=== PATIENT | female | born 1955 | race Caucasian/White ===

== ENCOUNTER 2020-06-26 08:06 | Day surgery (SDC) | payer MEDICARE, OTHER ==
[~2020-06-26 08:06] MED LIST: Acetaminophen 325 MG Tab PO SCH; Acetaminophen/oxyCODONE 325-5 MG Tab PO PRN; Bisacodyl 5 MG Tab PO PRN; Cyclobenzaprine 10 MG Tab PO PRN; EPINEPHrine 1 MG/ML SDV ONE; Lactated Ringers 1,000 ML IV SCH; Lactated Ringers 1,000 ML ONE; Lidocaine 1%/Sod Bicarbonate in NS 8.4% 1 ML Syringe IDERM PRN; Midazolam 1 MG/ML 2 ML SDV ONE; Ondansetron 4 MG/2 ML SDV ONE; Pregabalin 25 MG Cap PO SCH; Propofol 200 MG/20 ML SDV ONE; Ropivacaine 0.5% 5 MG/ML 30 ML SDV ONE; Sodium Chloride 0.9% 10 ML Syringe FLUSH PRN; ceFAZolin 1 GM Vial ONE; fentaNYL 100 MCG/2 ML SDV ONE; oxyCODONE ER 10 MG TAB.ER PO SCH
--- NOTE | 2020-06-26 08:15 | PCM.PREANE ---
Preanesthetic Assessment - Anesthesia/Transfusion/Family Hx Anesthesia History: Prior Anesthesia Without Reaction Family History of Anesthesia Reaction: No Transfusion History: No Prior Transfusion(s) - Review of Systems General: Other (Renal calculus, obesity) Pulmonary: No Symptoms Cardiovascular: Other (HTN, increased cholesterol, SP ablation for SVT in 2009, current EKG is SR with PAC) Gastrointestinal: Other (heartburn, pt states feels its food related) Neurological: Other (H&P states lumbar disc displacement. pt states that she has low back pain, nothing that radiates down legs) Other: Reports: Thyroid Problems (on replacement) - Physical Assessment NPO Status Date: 06/25/20 NPO Status Time: 23:30 Weight: 106 kg ASA Class: 3 Mental Status: Alert & Oriented x3 Airway Class: Mallampati = 2 Dentition: Reports: Normal Dentition Thyro-Mental Finger Breadths: 2 Mouth Opening Finger Breadths: 3 ROM/Head Extension: Full Lungs: Clear to Auscultation, Normal Respiratory Effort Cardiovascular: Regular Rate, Regular Rhythm - Lab Values: Laboratory Last Values SARS-CoV-2 (PCR) Not detected (NOT DETECT) 06/22/20 10:00 MRSA (PCR) Negative 06/13/20 11:32 - Allergies Allergies/Adverse Reactions: Allergies Allergy/AdvReac Type Severity Reaction Status Date / Time Iodinated Contrast Media Allergy Cannot Verified 06/23/20 14:45 Remember - Blood Blood Available: No Product(s) Available: None - Anesthesia Plan Pre-Op Medication Ordered: None - Acknowledgements Anesthesia Type Planned: Spinal Pt an Appropriate Candidate for the Planned Anesthesia: Yes Alternatives and Risks of Anesthesia Discussed w Pt/Guardian: Yes Pt/Guardian Understands and Agrees with Anesthesia Plan: Yes PreAnesthesia Questionnaire HEENT History: Reports: Impaired Vision, Other (See Below) Other HEENT History: wears glasses Cardiovascular History: Reports: Hypertension, Other (See Below) Other Cardiovascular History: SVT with ablation approx 2009 Respiratory History: Reports: None Gastrointestinal History: Reports: None, Colon Polyp Genitourinary History: Reports: Renal Calculus CUT OFF TENDER GLASS History: Reports: None Musculoskeletal History: Reports: Osteoarthritis Neurological History: Reports: None Psychiatric History: Reports: None Endocrine/Metabolic History: Reports: Hypothyroidism, Osteopenia Hematologic History: Reports: None Immunologic History: Reports: None Oncologic (Cancer) History: Reports: None Dermatologic History: Reports: None - Past Surgical History Head Surgeries/Procedures: Reports: None Cardiovascular Surgical History: Reports: Cardiac Ablation Respiratory Surgical History: Reports: None GI Surgical History: Reports: Colonoscopy Female Surgical History: Reports: Breast Biopsy Male Surgical History: Reports: None Endocrine Surgical History: Reports: Thyroidectomy Neurological Surgical History: Reports: Other (See Below) Other Neurological Surgeries/Procedures: lumbar disc displacement Musculoskeletal Surgical History: Reports: Other (See Below) Other Musculoskeletal Surgeries/Procedures:: left wrist surgery Oncologic Surgical History: Reports: None Dermatological Surgical History: Reports: None - SUBSTANCE USE Smoking Status *Q: Never Smoker Recreational Drug Use History: No - HOME MEDS Home Medications: Home Meds Calcium Carb/Vitamin D3/Vit K1 [Calcium + D Soft Chewable Tab] 1 tab PO DAILY 06/23/20 [History] Cholecalciferol (Vitamin D3) [Vitamin D3] 2,000 unit PO DAILY 06/23/20 [History] Levothyroxine 112 mcg PO Q48H 06/23/20 [History] Levothyroxine 125 mcg PO Q48H 06/23/20 [History] Magnesium Oxide 400 mg PO DAILY 06/23/20 [History] allopurinoL [Zyloprim] 300 mg PO DAILY 06/23/20 [History] hydroCHLOROthiazide [Hydrochlorothiazide] 25 mg PO DAILY 06/23/20 [History] lisinopriL [Lisinopril] 10 mg PO DAILY 06/23/20 [History] Acetaminophen [Tylenol Extra Strength] 1,000 mg PO BEDTIME #0 06/26/20 [Rx] Acetaminophen/oxyCODONE [Percocet 325-5 MG] 1 - 2 tab PO Q4H PRN #60 tablet 06/26/20 [Rx] Aspirin [Ecotrin EC] 325 mg PO BID #84 tab.ec 06/26/20 [Rx] Cyclobenzaprine [Flexeril] 10 mg PO BID PRN #20 tablet 06/26/20 [Rx] Docusate Sodium [Colace] 100 mg PO BID cap 06/26/20 [Rx] Famotidine [Pepcid] 20 mg PO Q12H tablet 06/26/20 [Rx] Magnesium Hydroxide [Milk of Magnesia] 30 ml PO BID PRN cup 06/26/20 [Rx] Sennosides [Senna] 8.6 mg PO BID PRN tablet 06/26/20 [Rx] bisacodyL [Dulcolax] 5 mg PO DAILY PRN tablet 06/26/20 [Rx] - CURRENT (IN HOUSE) MEDS Current Meds: Current Medications Acetaminophen (Tylenol) 975 mg PO ONETIME [facility] Stop: 06/26/20 16:00 Aspirin (Ecotrin) 325 mg PO BID [place]IT[place] Bisacodyl (Dulcolax) 5 mg PO DAILY PRN PRN Reason: Constipation Morphine Sulfate 8 mg/Epinephrine HCl 0.3 mg/Cefuroxime Sodium 750 mg/Ketorolac Tromethamine 30 mg/Sodium Chloride 7.9 ml 0 mg .XX ASDIRECTED PRN PRN Reason: Pain Stop: 06/26/20 14:00 Cyclobenzaprine HCl (Flexeril) 10 mg PO TID PRN PRN Reason: Spasms Docusate Sodium (Colace) 100 mg PO BID [place]IT[place] Famotidine (Pepcid) 20 mg PO Q12H [facility] Lactated Ringer's (Ringers, Lactated) 1,000 mls @ 125 mls/hr IV ASDIRECTED TEMITOPE Stop: 06/26/20 23:00 Cefazolin Sodium/Dextrose 2 gm (/ Premix) 50 mls @ 100 mls/hr IV Q8H TEMITOPE Stop: 06/26/20 22:29 Ketorolac Tromethamine (Toradol) 15 mg IVPUSH Q6H PRN PRN Reason: Pain Lidocaine/Sodium Bicarbonate (Buffered Lidocaine 1% In Ns 8.4%) 0.25 ml IDERM ONETIME PRN PRN Reason: Prior to IV Start Stop: 06/26/20 18:00 Magnesium Hydroxide (Milk Of Magnesia) 30 ml PO BID PRN PRN Reason: Constipation Oxycodone HCl (Oxycontin) 10 mg PO ONETIME [facility] Stop: 06/26/20 16:00 Oxycodone/Acetaminophen (Percocet 325-5 Mg) 1 - 2 tab PO Q4H PRN PRN Reason: Pain Pregabalin (Lyrica) 50 mg PO ONETIME [facility] Stop: 06/26/20 16:00 Senna (Senna) 8.6 mg PO BID PRN PRN Reason: Constipation Sodium Chloride (Saline Flush) 10 ml FLUSH ASDIRECTED PRN PRN Reason: Keep Vein Open Stop: 06/26/20 18:00 Discontinued Medications Cefazolin Sodium (Ancef) Confirm Administered Dose 2 gm .ROUTE .STK-MED ONE Stop: 06/26/20 07:08 Epinephrine HCl (Adrenalin) Confirm Administered Dose 1 mg .ROUTE .STK-MED ONE Stop: 06/26/20 07:45 Fentanyl (Sublimaze) Confirm Administered Dose 100 mcg .ROUTE .STK-MED ONE Stop: 06/26/20 07:09 Lactated Ringer's (Ringers, Lactated) Confirm Administered Dose 1,000 mls @ as directed .ROUTE .STK-MED ONE Stop: 06/26/20 07:08 Midazolam HCl (Versed 1 Mg/Ml) Confirm Administered Dose 2 mg .ROUTE .STK-MED ONE Stop: 06/26/20 07:09 Ondansetron HCl (Zofran) Confirm Administered Dose 4 mg .ROUTE .STK-MED ONE Stop: 06/26/20 07:08 Propofol (Diprivan 20 Ml) Confirm Administered Dose 600 mg .ROUTE .STK-MED ONE Stop: 06/26/20 07:09 Ropivacaine (Naropin 0.5%) Confirm Administered Dose 30 ml .ROUTE .STK-MED ONE Stop: 06/26/20 07:45
[2020-06-26] MEDS ORDERED: Triamcinolone Acetonide 40 MG/ML 1 ML SDV ONE (08:16)
[2020-06-26] MEDS ORDERED: Magnesium Hydroxide 400 MG/5 ML Susp 30 ML Cup PO PRN (09:00)
[2020-06-26] MEDS ORDERED: Docusate Sodium 100 MG Cap PO SCH (09:00)
[2020-06-26] MEDS ORDERED: Sennosides 8.6 MG Tab PO PRN (09:00)
[2020-06-26] MEDS ORDERED: Ketorolac 15 MG/ML SDV IVPUSH PRN (09:00)
[2020-06-26] MEDS: Vancomycin 1 GM SDV ONE ×2 (09:48→10:23)
[2020-06-26] MEDS: Bupivacaine 0.25% 10 ML SDV ONE ×4 (09:48→10:40)
[2020-06-26] MEDS: Triamcinolone Acetonide 40 MG/ML 1 ML SDV ONE ×2 (09:51→10:40)
[2020-06-26] MEDS: Morphine 8 MG, EPINEPHrine 0.3 MG, Cefuroxime 750 MG, Ketorolac 30 MG, Sodium Chloride ... PRN ×10 (10:11→10:27)
[2020-06-26] MEDS ORDERED: diphenhydrAMINE 50 MG/ML SDV IVPUSH PRN (10:51)
[2020-06-26] MEDS ORDERED: fentaNYL 100 MCG/2 ML SDV IVPUSH PRN (10:51)
[2020-06-26] MEDS ORDERED: Ondansetron 4 MG/2 ML SDV IVPUSH PRN (10:51)
--- NOTE | 2020-06-26 10:51 | PCM.POSTAN ---
POST ANESTHESIA ASSESSMENT - MENTAL STATUS Mental Status: Alert, Oriented - VITAL SIGNS Vital Signs: Last Vital Signs Temp 36.7 C 06/26/20 08:05 Pulse 74 06/26/20 08:05 Resp 16 06/26/20 08:05 BP 173/92 H 06/26/20 08:28 Pulse Ox 96 06/26/20 08:05 - RESPIRATORY Respiratory Status: Respiratory Rate WNL, Airway Patent, O2 Saturation Stable, Supplemental Oxygen - CARDIOVASCULAR CV Status: Pulse Rate WNL, Blood Pressure Stable - GASTROINTESTINAL GI Status: No Symptoms - PAIN Pain Score: 0 - POST OP HYDRATION Hydration Status: Adequate & Stable
--- NOTE | 2020-06-26 11:20 | PCM.SN.2 ---
- Free Text/Narrative Note: Left selective femoral nerve block at the adductor canal for post-procedure pain control under US guidance requested by Dr. Machuca. Date: 06-26-20 Time Out: 1104 Start: 1105 End: 111 Chart reviewed. Consent signed. Questions answered. Appropriate monitors applied. Time out performed. Left mid-shaft femur identified with ultrasound, scanning medially of femur, the femoral artery in the adductor canal visualized, and the femoral nerve located laterally to the artery. The skin was prepped lateral to the ultrasound probe with chlorahexadine times two. The 21ga 4 insulated block needle was inserted under direct ultrasound guidance into the adductor canal. 25mL of 0.5% ropivacaine with 1:200,000 epinephrine was injected circumferentially around the nerve with intermittent negative aspiration noted. Patient tolerated the procedure well. Sterile technique noted along with sterile gloves, mask, and sterile probe cover. See picture on progress note and vital signs on nurses notes. Block completed in PACU. Beulah Elizabeth CRNA
--- NOTE | 2020-06-26 11:41 | CR ---
Left knee: AP and stable lateral views left knee were obtained. Comparison: No prior knee study is available. Knee prosthesis is seen. Components are aligned. Soft tissue air is noted from the surgical procedure. Underlying bony structures are intact. Dystrophic calcifications are seen within soft tissues. Impression: 1. Satisfactory postop radiographic appearance of recently placed left knee prosthesis. Diagnostic code #2 This report was dictated in MDT
--- NOTE | 2020-06-26 14:44 | PCM48HPAN ---
Post Anesthesia Note - EVALUATION WITHIN 48HRS OF ANESTHETIC Vital Signs in Normal Range: Yes Patient Participated in Evaluation: Yes Respiratory Function Stable: Yes Airway Patent: Yes Cardiovascular Function Stable: Yes Hydration Status Stable: Yes Pain Control Satisfactory: Yes (complains of some back pain.) Nausea and Vomiting Control Satisfactory: Yes (stomach feeling bad after pain pills. did eat crackers. ) Mental Status Recovered: Yes Vital Signs: Last Vital Signs Temp 97.2 F 06/26/20 11:34 Pulse 72 06/26/20 13:12 Resp 16 06/26/20 13:12 BP 119/61 06/26/20 13:12 Pulse Ox 95 06/26/20 13:12
[2020-06-26] MEDS ORDERED: ceFAZolin 2 GM in Premix Bag 1 BAG IV SCH (16:00)
--- NOTE | 2020-06-26 17:16 | PCM.OPNOTE ---
- General Post-Op/Procedure Note Date of Surgery/Procedure: 06/26/20 Operative Procedure(s): left total knee arthroplasty Pre Op Diagnosis: left knee osteoarthrosis Anesthesia Technique: Local, MAC, Spinal Primary Surgeon: Ben Machuca Anesthesia Provider: Ifrah Rivas Welder Assistant: Kalpana Dai Welder Assistant: Kary Flannery EBKelly in mLs: 5 Complications: None Condition: Good Free Text/Narrative:: Intake & Output 06/26/20 06/26/20 06/26/20 06:59 14:59 22:59 Intake Total 200 Balance 200 5 femur 4 tibia cemented 9PS 32x10
[2020-06-26] MEDS ORDERED: Famotidine 20 MG Tab PO SCH (21:00)
[2020-06-27] MEDS ORDERED: Aspirin 325 MG Tab.EC PO SCH (09:00)
--- NOTE | 2020-07-03 09:51 | OR ---
DATE OF OPERATION: 06/26/2020 SURGEON: Ben Machuca MD OPERATION PERFORMED: Left total knee arthroplasty. PREOPERATIVE DIAGNOSIS: Left knee osteoarthrosis. POSTOPERATIVE DIAGNOSIS: Left knee osteoarthrosis ANESTHESIA: Local MAC with spinal. ANESTHESIA PROVIDER: Ifrah Rivas. ASSISTANTS: Kalpana Dai PA-C and Kary Flannery LPN. ESTIMATED BLOOD LOSS: 5 mL. COMPLICATIONS: None. CONDITION: Stable. IMPLANTS: 1. Yoandy size 5 cemented PS femur. 2. [place] size 4 cemented Plummer tibial base plate. 3. [place] size 4, 9 mm PS X3 polyethylene insert. 4. Yoandy size 32 x 10 mm cemented asymmetric patella. DESCRIPTION OF PROCEDURE: The patient was identified in the preop holding area. Proper site was marked and identified by the surgeon. The patient was taken back to the operating theater. After adequate anesthesia, the patient's left lower extremity had a nonsterile tourniquet applied and it was sterilely prepped and draped in the usual sterile fashion. OR time-out was performed. The patient received 2 g IV Ancef. At this time, the left lower extremity was exsanguinated. Tourniquet was insufflated to 300 mmHg. Standard medial parapatellar incision was made. Medial parapatellar arthrotomy was created. Deep fibers of the MCL were raised and anterior fat pad was resected. At this time, attention was turned to the patella. Patella measured 23, it was resected to a 13 for 32 x 10 mm patella. Drill holes were then drilled and found to be in adequate position. The drill was then drilled in the distal femur and the intramedullary distal femoral cutting guide was then placed. 8 mm was resected off the distal femur and was found to be an adequate resection. Sizing guide was placed. It was found to be a size 5 cemented PS femur that was shown on the implant record at the beginning of this dictation. The drill holes were drilled for the epicondylar axis using Whitesides line and epicondyles as reference. At this time, the 4-in-1 cutting block was placed. An anterior posterior and anterior and posterior chamfer cuts were then completed. Box cut was completed at this time. Attention was turned to the tibia. The posterior medial lateral retractors were placed. The extramedullary tibial guide was placed. It was placed in the old footprint of the ACL. It was aligned with the center of the ankle and 0 degrees of slope, 9 mm was then resected off the unaffected side. There was found to be an acceptable reduction. At this time, posterior osteophytes were removed along with medial and lateral meniscus. A trial implant was placed with a correct sized tibia that was mentioned at the beginning of the dictation. A [place] size 4, 9 mm PS X3 polyethylene insert was then placed. The patient's knee was brought through range of motion. The patella was tracking centrally and was stable to varus and valgus stress. Alignment was found to be roughly at 0 degrees. The tibia was stamped and drilled in proper rotation. Cement was mixed and all cut surfaces were dried. The Plummer tibial base plate was impacted in place. Next, the Yoandy size 5 cemented PS femur impacted into place and the [place] size 4, 9 mm PS X3 polyethylene insert was placed. The patient's knee was brought into full extension. The patella was then cemented in place at this time. Excess cement was removed. One liter dilute Betadine solution was irrigated through the knee along with 3 L of pulse lavage irrigation with Ancef. Periarticular injection was then completed. The patient's knee was brought through a range of motion. Once the cement had time to set up and it was found to be stable to varus valgus stress, the patella was tracking centrally with full range of motion. At this time, a #2 barbed suture was used for closure of the medial parapatellar arthrotomy. Topical tranexamic acid was placed. 2-0 Vicryl was used subcutaneously, Prineo was used for the skin. The patient tolerated the procedure well and was sent to the PACU in stable condition. MMODAL /[id number] SMILEY
== END 2020-06-26 15:20 | disposition home or self-care (01) ==
LOC: JD.SDS 08:06
PROVIDERS: ATTEND Orthopaedic Surgery
DX: M17.12 Unilateral primary osteoarthritis, left knee (principal); I10 Essential (primary) hypertension; E78.00 Pure hypercholesterolemia, unspecified; E66.3 Overweight; E03.4 Atrophy of thyroid (acquired); Z79.899 Other long term (current) drug therapy; Z91.041 Radiographic dye allergy status; Z98.890 Other specified postprocedural states; Z79.890 Hormone replacement therapy; Z68.37 Body mass index [BMI] 37.0-37.9, adult; Z01.812 Encounter for preprocedural laboratory examination; Z20.828 Contact with and (suspected) exposure to other viral communicable diseases; G89.18 Other acute postprocedural pain
CPT/HCPCS: 27447; 73560; 87641; 97110; 97116; 97161; A9270; C1713; C1776; J0171; J0690; J0697; J1885; J2250; J2270; J2370; J2405; J2704; J2795; J3010; J3301; J3370; J3490; J7120; U0002; 01402; 64450

== ENCOUNTER 2020-08-15 11:51 | Day surgery (SDC) | payer MEDICARE, OTHER ==
[~2020-08-15 11:51] MED LIST changes: -Acetaminophen 325 MG Tab PO SCH; -Acetaminophen/oxyCODONE 325-5 MG Tab PO PRN; -Bisacodyl 5 MG Tab PO PRN; +Cefuroxime 10 MG/ML SYRINGE EYERT SCH; -Cyclobenzaprine 10 MG Tab PO PRN; -EPINEPHrine 1 MG/ML SDV ONE; -Lactated Ringers 1,000 ML IV SCH; -Lactated Ringers 1,000 ML ONE; +Lidocaine 1% PF 2 ML SDV INJECT SCH; -Lidocaine 1%/Sod Bicarbonate in NS 8.4% 1 ML Syringe IDERM PRN; -Midazolam 1 MG/ML 2 ML SDV ONE; -Ondansetron 4 MG/2 ML SDV ONE; +Pilocarpine 4% Ophth Soln 15 ML Bot EYERT SCH; -Pregabalin 25 MG Cap PO SCH; -Propofol 200 MG/20 ML SDV ONE; -Ropivacaine 0.5% 5 MG/ML 30 ML SDV ONE; -Sodium Chloride 0.9% 10 ML Syringe FLUSH PRN; -ceFAZolin 1 GM Vial ONE; -fentaNYL 100 MCG/2 ML SDV ONE; -oxyCODONE ER 10 MG TAB.ER PO SCH
[2020-08-15] MEDS: Polymyxin B/Trimethoprim 10 ML Bottle EYERT SCH ×3 (11:56→13:31)
[2020-08-15] MEDS: Brimonidine 0.2% Ophth Soln 5 ML Bottle EYERT SCH ×3 (11:59→13:31)
[2020-08-15] MEDS: Phenylephrine 2.5% Ophth Soln 2 ML Bot EYERT SCH ×5 (12:04→13:13)
[2020-08-15] MEDS: Tropicamide 1% Ophth Soln 15 ML Bottle EYERT SCH ×4 (12:08→12:50)
--- NOTE | 2020-08-15 12:09 | PCM.PREANE ---
Preanesthetic Assessment - Anesthesia/Transfusion/Family Hx Anesthesia History: Prior Anesthesia Without Reaction Family History of Anesthesia Reaction: No Transfusion History: No Prior Transfusion(s) - Review of Systems General: Other (obesity) Pulmonary: No Symptoms Cardiovascular: Other (HTN, SVT s/p ablation) Gastrointestinal: No Symptoms Neurological: No Symptoms, Other (s/p total knee) Other: Reports: Thyroid Problems - Physical Assessment NPO Status Date: 08/15/20 NPO Status Time: 23:00 Weight: 104.326 kg ASA Class: 2 Mental Status: Alert & Oriented x3 Airway Class: Mallampati = 2 Dentition: Reports: Normal Dentition Thyro-Mental Finger Breadths: 3 Mouth Opening Finger Breadths: 3 ROM/Head Extension: Full Lungs: Clear to Auscultation, Normal Respiratory Effort Cardiovascular: Regular Rate, Regular Rhythm - Allergies Allergies/Adverse Reactions: Allergies Allergy/AdvReac Type Severity Reaction Status Date / Time Iodinated Contrast Media Allergy Cannot Verified 08/14/20 15:55 Remember - Blood Blood Available: No Product(s) Available: None - Anesthesia Plan Pre-Op Medication Ordered: None - Acknowledgements Anesthesia Type Planned: MAC Pt an Appropriate Candidate for the Planned Anesthesia: Yes Alternatives and Risks of Anesthesia Discussed w Pt/Guardian: Yes Pt/Guardian Understands and Agrees with Anesthesia Plan: Yes PreAnesthesia Questionnaire HEENT History: Reports: Impaired Vision, Other (See Below) Other HEENT History: wears glasses Cardiovascular History: Reports: Hypertension, Other (See Below) Other Cardiovascular History: SVT with ablation approx 2009 Respiratory History: Reports: None Gastrointestinal History: Reports: None, Colon Polyp Genitourinary History: Reports: Renal Calculus 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 History: Reports: None Musculoskeletal History: Reports: Osteoarthritis Neurological History: Reports: None Psychiatric History: Reports: None Endocrine/Metabolic History: Reports: Hypothyroidism, Osteopenia Hematologic History: Reports: None Immunologic History: Reports: None Oncologic (Cancer) History: Reports: None Dermatologic History: Reports: None - Past Surgical History Head Surgeries/Procedures: Reports: None Cardiovascular Surgical History: Reports: Cardiac Ablation Respiratory Surgical History: Reports: None GI Surgical History: Reports: Colonoscopy Female Surgical History: Reports: Breast Biopsy Male Surgical History: Reports: None Endocrine Surgical History: Reports: Thyroidectomy Neurological Surgical History: Reports: Other (See Below) Other Neurological Surgeries/Procedures: lumbar disc displacement Musculoskeletal Surgical History: Reports: Other (See Below) Other Musculoskeletal Surgeries/Procedures:: left wrist surgery Oncologic Surgical History: Reports: None Dermatological Surgical History: Reports: None - HOME MEDS Home Medications: Home Meds Calcium Carb/Vitamin D3/Vit K1 [Calcium + D Soft Chewable Tab] 1 tab PO DAILY 06/23/20 [History] Cholecalciferol (Vitamin D3) [Vitamin D3] 2,000 unit PO DAILY 06/23/20 [History] Levothyroxine 112 mcg PO Q48H 06/23/20 [History] Levothyroxine 125 mcg PO Q48H 06/23/20 [History] Magnesium Oxide 400 mg PO DAILY 06/23/20 [History] allopurinoL [Zyloprim] 300 mg PO DAILY 06/23/20 [History] hydroCHLOROthiazide [Hydrochlorothiazide] 25 mg PO DAILY 06/23/20 [History] lisinopriL [Lisinopril] 10 mg PO DAILY 06/23/20 [History] Acetaminophen [Tylenol Extra Strength] 1,000 mg PO BEDTIME #0 06/26/20 [Rx] Acetaminophen/oxyCODONE [Percocet 325-5 MG] 1 - 2 tab PO Q4H PRN #60 tablet 06/26/20 [Rx] Aspirin [Ecotrin EC] 325 mg PO BID #84 tab.ec 06/26/20 [Rx] Cyclobenzaprine [Flexeril] 10 mg PO BID PRN #20 tablet 06/26/20 [Rx] Docusate Sodium [Colace] 100 mg PO BID cap 06/26/20 [Rx] Famotidine [Pepcid] 20 mg PO Q12H tablet 06/26/20 [Rx] Magnesium Hydroxide [Milk of Magnesia] 30 ml PO BID PRN cup 06/26/20 [Rx] Sennosides [Senna] 8.6 mg PO BID PRN tablet 06/26/20 [Rx] bisacodyL [Dulcolax] 5 mg PO DAILY PRN tablet 06/26/20 [Rx] - CURRENT (IN HOUSE) MEDS Current Meds: Current Medications Brimonidine Tartrate (Alphagan 0.2% Ophth Soln) 0 ml EYERT ASDIRECTED [facility]ITOPE Stop: 08/15/20 18:00 Last Admin: 08/15/20 11:59 Dose: 1 drop Documented by: Cefuroxime Sodium (Zinacef) 0 mg EYERT ASDIRECTED [place]IT[place] Stop: 08/15/20 18:00 Lidocaine HCl (Xylocaine-Mpf 1%) 0 ml INJECT ASDIRECTED [place]ITOPE Stop: 08/15/20 18:00 Phenylephrine HCl (Arnoldo-Synephrine 2.5% Ophth Soln) 0 ml EYERT ASDIRECTED [place]IT[place] Stop: 08/15/20 18:00 Pilocarpine HCl (Pilocar 4% Ophth Soln) 0 ml EYERT ASDIRECTED [place]IT[place] Stop: 08/15/20 18:00 Polymyxin/Trimethoprim Sulfate (Polytrim Ophth Soln) 0 ml EYERT ASDIRECTED [place]IT[place] Stop: 08/15/20 18:00 Last Admin: 08/15/20 11:56 Dose: 1 drop Documented by: Tetracaine HCl (Tetracaine 0.5% Steri-Unit Suri) 0 ml EYEBOTH ASDIRECTED [facility]IT[place] Stop: 08/15/20 18:00 Tropicamide (Mydriacyl 1% Oph Soln) 0 ml EYERT ASDIRECTED [facility]IT[place] Stop: 08/15/20 18:00
[2020-08-15] MEDS: Tetracaine HCl/PF 0.5% 4 ML Bottle EYEBOTH SCH ×4 (12:55→13:21)
--- NOTE | 2020-08-15 13:33 | PCM48HPAN ---
Post Anesthesia Note - EVALUATION WITHIN 48HRS OF ANESTHETIC Vital Signs in Normal Range: Yes Patient Participated in Evaluation: Yes Respiratory Function Stable: Yes Airway Patent: Yes Cardiovascular Function Stable: Yes Hydration Status Stable: Yes Pain Control Satisfactory: Yes Nausea and Vomiting Control Satisfactory: Yes Mental Status Recovered: Yes Vital Signs: Last Vital Signs Temp 97.8 F 08/15/20 11:45 Pulse 84 08/15/20 11:45 Resp 16 08/15/20 11:45 BP 148/84 H 08/15/20 11:45 Pulse Ox 97 08/15/20 11:45 Post procedure VSs: 133/74 78, 96%, 15RR
== END 2020-08-15 13:57 | disposition home or self-care (01) ==
LOC: JD.SDS 11:51
PROVIDERS: ATTEND Ophthalmology
DX: H25.813 Combined forms of age-related cataract, bilateral (principal); H16.103 Unspecified superficial keratitis, bilateral; H16.223 Keratoconjunctivitis sicca, not specified as Sjogren's, bilateral; H35.363 Drusen (degenerative) of macula, bilateral; H35.3131 Nonexudative age-related macular degeneration, bilateral, early dry stage; H50.012 Monocular esotropia, left eye; H53.002 Unspecified amblyopia, left eye; I10 Essential (primary) hypertension; E66.9 Obesity, unspecified; E03.9 Hypothyroidism, unspecified; Z98.890 Other specified postprocedural states; Z79.899 Other long term (current) drug therapy
CPT/HCPCS: 66984; C1780; J0697; J2001

== ENCOUNTER 2020-12-11 08:00 | Day surgery (SDC) | payer MEDICARE, OTHER ==
[~2020-12-11 08:00] MED LIST changes: +Acetaminophen 325 MG Tab PO SCH; -Cefuroxime 10 MG/ML SYRINGE EYERT SCH; -Lidocaine 1% PF 2 ML SDV INJECT SCH; +Lidocaine 1%/Sod Bicarbonate in NS 8.4% 1 ML Syringe IDERM PRN; -Pilocarpine 4% Ophth Soln 15 ML Bot EYERT SCH; +Pregabalin 25 MG Cap PO SCH; +Scopolamine 1.5 MG Transdermal Patch TRDERM PRN; +Sodium Chloride 0.9% 10 ML Syringe FLUSH PRN; +oxyCODONE ER 10 MG TAB.ER PO SCH
[2020-12-11] MEDS: Lactated Ringers 1,000 ML IV SCH ×2 (08:15→12:36)
[2020-12-11] MEDS ORDERED: Ropivacaine 0.5% 5 MG/ML 30 ML SDV ONE (08:45)
--- NOTE | 2020-12-11 09:04 | PCM.PREANE ---
Preanesthetic Assessment - Procedure Proposed Procedure: Right total knee - Anesthesia/Transfusion/Family Hx Anesthesia History: Prior Anesthesia Without Reaction Family History of Anesthesia Reaction: No Transfusion History: No Prior Transfusion(s) - Review of Systems General: No Symptoms Pulmonary: No Symptoms Cardiovascular: Dyspnea on Exertion Gastrointestinal: No Symptoms Neurological: No Symptoms Other: Reports: Thyroid Problems (hypothyroid) - Physical Assessment NPO Status Date: 12/10/20 NPO Status Time: 00:00 Vital Signs: Last Vital Signs Temp 36.2 C 12/11/20 08:05 Pulse 96 12/11/20 08:05 Resp 18 12/11/20 08:05 BP 167/79 H 12/11/20 08:19 Pulse Ox 96 12/11/20 08:05 Height: 1.68 m Weight: 109.8 kg ASA Class: 2 Mental Status: Alert & Oriented x3 Airway Class: Mallampati = 2 Dentition: Reports: [place](s) Thyro-Mental Finger Breadths: 2 Mouth Opening Finger Breadths: 2 ROM/Head Extension: Full Lungs: Clear to Auscultation, Normal Respiratory Effort Cardiovascular: Regular Rate, Regular Rhythm - Lab Values: Laboratory Last Values MRSA (PCR) Negative 11/24/20 10:54 - Imaging/EKG Impressions: EKG SR rate 69 - Allergies Allergies/Adverse Reactions: Allergies Allergy/AdvReac Type Severity Reaction Status Date / Time Iodinated Contrast Media Allergy Cannot Verified 12/11/20 08:36 Remember - Anesthesia Plan Pre-Op Medication Ordered: None - Acknowledgements Anesthesia Type Planned: Spinal, Regional Block (adductor canal block) Pt an Appropriate Candidate for the Planned Anesthesia: Yes Alternatives and Risks of Anesthesia Discussed w Pt/Guardian: Yes Pt/Guardian Understands and Agrees with Anesthesia Plan: Yes PreAnesthesia Questionnaire HEENT History: Reports: Impaired Vision, Other (See Below) Other HEENT History: wears glasses Cardiovascular History: Reports: High Cholesterol, Hypertension, Other (See Below) Other Cardiovascular History: SVT with ablation approx 2009 Respiratory History: Reports: None Gastrointestinal History: Reports: Colon Polyp, GERD Genitourinary History: Reports: Renal Calculus CQ DEVELOPER History: Reports: None Musculoskeletal History: Reports: Osteoarthritis Neurological History: Reports: None Psychiatric History: Reports: None Endocrine/Metabolic History: Reports: Hypothyroidism, Osteopenia Hematologic History: Reports: None Immunologic History: Reports: None Oncologic (Cancer) History: Reports: None Dermatologic History: Reports: None - Infectious Disease History Infectious Disease History: Reports: None - Past Surgical History Head Surgeries/Procedures: Reports: None Cardiovascular Surgical History: Reports: Cardiac Ablation Respiratory Surgical History: Reports: None GI Surgical History: Reports: Colonoscopy Female Surgical History: Reports: Breast Biopsy Male Surgical History: Reports: None Endocrine Surgical History: Reports: Thyroidectomy Neurological Surgical History: Reports: Other (See Below) Other Neurological Surgeries/Procedures: lumbar disc displacement Musculoskeletal Surgical History: Reports: Knee Replacement, Other (See Below) Other Musculoskeletal Surgeries/Procedures:: left wrist surgery, left total knee replacement Oncologic Surgical History: Reports: None Dermatological Surgical History: Reports: None - SUBSTANCE USE Tobacco Use Status *Q: Never Tobacco User Tobacco Use Within Last Twelve Months: No Second Hand Smoke Exposure: No Days Per Week of Alcohol Use: 1 Number of Drinks Per Day: 0 Total Drinks Per Week: 0 Recreational Drug Use History: No - HOME MEDS Home Medications: Home Meds Calcium Carb/Vitamin D3/Vit K1 [Calcium + D Soft Chewable Tab] 1 tab PO DAILY 06/23/20 [History] Cholecalciferol (Vitamin D3) [Vitamin D3] 5,000 unit PO DAILY 06/23/20 [History] Levothyroxine 112 mcg PO Q48H 06/23/20 [History] Levothyroxine 125 mcg PO Q48H 06/23/20 [History] Magnesium Oxide 400 mg PO DAILY 06/23/20 [History] allopurinoL [Zyloprim] 300 mg PO DAILY 06/23/20 [History] hydroCHLOROthiazide [Hydrochlorothiazide] 25 mg PO DAILY 06/23/20 [History] lisinopriL [Lisinopril] 10 mg PO DAILY 06/23/20 [History] Vitamin E 400 unit PO DAILY 12/08/20 [History] Aspirin [Aspirin EC] 325 mg PO BID #84 tab 12/09/20 [Rx] Cyclobenzaprine [Flexeril] 10 mg PO BID PRN #20 tab 12/09/20 [Rx] oxyCODONE 5 - 15 mg PO Q4H PRN #40 tab 12/09/20 [Rx] - CURRENT (IN HOUSE) MEDS Current Meds: Current Medications Acetaminophen (Acetaminophen 325 Mg Tab) 975 mg PO ONETIME TEMITOPE Stop: 12/11/20 16:00 Last Admin: 12/11/20 08:27 Dose: 975 mg Documented by: Morphine Sulfate 8 mg/Epinephrine HCl 0.3 mg/Cefuroxime Sodium 750 mg/Ketorolac Tromethamine 30 mg/Sodium Chloride 7.9 ml 0 mg .XX ASDIRECTED PRN PRN Reason: Pain Stop: 12/11/20 23:00 Lactated Ringer's (Ringers, Lactated) 1,000 mls @ 125 mls/hr IV ASDIRECTED TEMITOPE Stop: 12/11/20 23:00 Last Admin: 12/11/20 08:15 Dose: 125 mls/hr Documented by: Lidocaine/Sodium Bicarbonate (Lidocaine 1%/Sod Bicarbonate In Ns 8.4% 1 Ml Syringe) 0.25 ml IDERM ONETIME PRN PRN Reason: Prior to IV Start Stop: 12/11/20 18:00 Last Admin: 12/11/20 08:15 Dose: 0.25 ml Documented by: Miscellaneous Information (Remove Scopolamine Patch) 1.5 ea TRDERM ONETIME PRN PRN Reason: PONV Stop: 12/14/20 23:00 Oxycodone HCl (Oxycodone Er 10 Mg Tab.Er) 10 mg PO ONETIME TEMITOPE Stop: 12/11/20 16:00 Last Admin: 12/11/20 08:29 Dose: 10 mg Documented by: Pregabalin (Pregabalin 25 Mg Cap) 50 mg PO ONETIME TEMITOPE Stop: 12/11/20 16:00 Last Admin: 12/11/20 08:29 Dose: 50 mg Documented by: Scopolamine (Scopolamine 1.5 Mg Transdermal Patch) 1.5 mg TRDERM ONETIME PRN PRN Reason: PONV Stop: 12/14/20 23:00 Last Admin: 12/11/20 08:30 Dose: 1.5 mg Documented by: Sodium Chloride (Sodium Chloride 0.9% 10 Ml Syringe) 10 ml FLUSH ASDIRECTED PRN PRN Reason: Keep Vein Open Stop: 12/11/20 18:00 Discontinued Medications Ropivacaine (Ropivacaine 0.5% 5 Mg/Ml 30 Ml Sdv) Confirm Administered Dose 30 ml .ROUTE .STK-MED ONE Stop: 12/11/20 08:46 Tranexamic Acid (Tranexamic Acid 1,000 Mg/10 Ml Amp) Confirm Administered Dose 1,000 mg .ROUTE .STK-MED ONE Stop: 12/11/20 08:48 Vancomycin HCl (Vancomycin 1 Gm Sdv) Confirm Administered Dose 1 gm .ROUTE .STK- MED ONE Stop: 12/11/20 08:48
[2020-12-11] MEDS ORDERED: Midazolam 1 MG/ML 2 ML SDV ONE ×2 (09:43→09:46)
[2020-12-11] MEDS ORDERED: Propofol 200 MG/20 ML SDV ONE ×2 (09:43→11:26)
[2020-12-11] MEDS ORDERED: Lactated Ringers 1,000 ML ONE (09:43)
[2020-12-11] MEDS ORDERED: fentaNYL 100 MCG/2 ML SDV ONE ×2 (09:43→12:16)
[2020-12-11] MEDS ORDERED: Ketamine 500 mg/10 ML MDV ONE (10:05)
[2020-12-11] MEDS ORDERED: ceFAZolin 1 GM Vial ONE (10:08)
[2020-12-11] MEDS: Morphine 8 MG, EPINEPHrine 0.3 MG, Cefuroxime 750 MG, Ketorolac 30 MG, Sodium Chloride ... PRN ×10 (11:15→11:20)
[2020-12-11] MEDS: Vancomycin 1 GM SDV ONE ×2 (11:16→11:31)
--- NOTE | 2020-12-11 12:04 | PCM.POSTAN ---
POST ANESTHESIA ASSESSMENT - MENTAL STATUS Mental Status: Other (Drowsy) - VITAL SIGNS Vital Signs: Last Vital Signs Temp 36.2 C 12/11/20 08:05 Pulse 96 12/11/20 08:05 Resp 18 12/11/20 08:05 BP 167/79 H 12/11/20 08:19 Pulse Ox 96 12/11/20 08:05 1156 97.6 119/58 84 22 93% - RESPIRATORY Respiratory Status: Respiratory Rate WNL, Airway Patent, O2 Saturation Stable - CARDIOVASCULAR CV Status: Pulse Rate WNL, Blood Pressure Stable - GASTROINTESTINAL GI Status: No Symptoms - PAIN Pain Score: 0 - POST OP HYDRATION Hydration Status: Adequate & Stable
--- NOTE | 2020-12-11 12:05 | PCM.OPNOTE ---
- General Post-Op/Procedure Note Date of Surgery/Procedure: 12/11/20 Operative Procedure(s): right total knee arthroplasty with lucía assist Pre Op Diagnosis: right knee osteoarthrosis Post-Op Diagnosis: Same Anesthesia Technique: Local, MAC, Spinal Primary Surgeon: Ben Machuca Anesthesia Provider: Rossy Maradiaga Conveyor Attendant: Kalpana Dai Conveyor Attendant: Kary Flannery EBL in mLs: 5 Complications: None Condition: Stable Free Text/Narrative:: 5 femur 4 tibia 9mm 32x10
[2020-12-11] MEDS ORDERED: oxyCODONE 5 MG Tab PO PRN (12:08)
[2020-12-11] MEDS ORDERED: Ondansetron 4 MG/2 ML SDV IVPUSH PRN (12:11)
[2020-12-11] MEDS: fentaNYL 100 MCG/2 ML SDV IVPUSH PRN ×3 (12:18→13:08)
[2020-12-11] MEDS: HYDROmorphone 0.5 MG/0.5 ML Syringe IVPUSH PRN ×2 (12:27→12:50)
[2020-12-11] MEDS ORDERED: Cyclobenzaprine 10 MG Tab PO ONE (12:30)
--- NOTE | 2020-12-11 12:37 | PCM.SN.2 ---
- Free Text/Narrative Note: Right selective femoral nerve block at the adductor canal for post-procedure pain control under US guidance requested by Dr. Machuca. Date: 12/11/20 Time Out:1219 Start:1219 End: 1222 Chart reviewed. Consent signed. Questions answered. Appropriate monitors applied. Time out performed. Right mid-shaft femur identified with ultrasound, scanning medially of femur, the femoral artery in the adductor canal visualized, and the femoral nerve located laterally to the artery. The skin was prepped lateral to the ultrasound probe with chlorahexadine times two. The 21ga 4 insulated block needle was inserted under direct ultrasound guidance into the adductor canal. 25mL of 0.5% ropivacaine with 1:200,000 epinephrine was injected circumferentially around the nerve with intermittent negative aspiration noted. Patient tolerated the procedure well. Sterile technique noted along with sterile gloves, mask, and sterile probe cover. See picture on progress note and vital signs on nurses notes. Block completed in PACU. Beulah Elizabeth CRNA
[2020-12-11] MEDS ORDERED: HYDROmorphone 0.5 MG/0.5 ML Syringe IVPUSH PRN (13:02)
[2020-12-11] MEDS ORDERED: fentaNYL 100 MCG/2 ML SDV IVPUSH PRN (13:02)
--- NOTE | 2020-12-11 13:54 | CR ---
Right knee: 2 views of the right knee were obtained. Comparison: Prior right knee or CT study of 11/24/20. Right knee prosthesis is noted. Components are aligned. Soft tissue air is noted. Patellar prosthesis is seen. No acute osseous finding is seen. Impression: 1. Satisfactory postop radiographic appearance of recently placed right knee prosthesis. Diagnostic code #2
[2020-12-11] MEDS ORDERED: Haloperidol Lactate 5 MG/ML SDV IVPUSH PRN (14:35)
--- NOTE | 2020-12-11 14:35 | PCM48HPAN ---
Post Anesthesia Note - EVALUATION WITHIN 48HRS OF ANESTHETIC Vital Signs in Normal Range: Yes Patient Participated in Evaluation: Yes Respiratory Function Stable: Yes Airway Patent: Yes Cardiovascular Function Stable: Yes Hydration Status Stable: Yes Pain Control Satisfactory: Yes Nausea and Vomiting Control Satisfactory: No (orders given) Mental Status Recovered: Yes Vital Signs: Last Vital Signs Temp 36.6 C 12/11/20 13:45 Pulse 81 12/11/20 14:07 Resp 15 12/11/20 14:07 BP 128/76 12/11/20 14:07 Pulse Ox 93 L 12/11/20 14:07
--- NOTE | 2020-12-22 10:16 | OR ---
DATE OF OPERATION: 12/11/2020 SURGEON: Ben Machuca MD OPERATION PERFORMED: Right total knee arthroplasty with Jose Alberto assist. PREOPERATIVE DIAGNOSIS: Right knee osteoarthrosis. POSTOPERATIVE DIAGNOSIS: Right knee osteoarthrosis. ANESTHESIA: Local MAC with spinal. ANESTHESIA PROVIDER: Tawny Persaud. ASSISTANTS: Kalpana Dai PA-C and Kary Flannery LPN. ESTIMATED BLOOD LOSS: 5 mL. COMPLICATIONS: None. CONDITION: Stable. IMPLANTS: 1. [place] size 5 cemented PS femur. 2. [place] size 4 cemented [place] tibial baseplate. 3. [place]andy size 4, 9 mm PS X3 polyethylene. 4. [place] size 32 x 10 mm cemented asymmetric patella. DESCRIPTION OF PROCEDURE: The patient was identified in the preoperative holding area. Proper site was marked and identified by the surgeon. The patient was taken back to the operating theater, where after adequate anesthesia, the patient's right lower extremity had a nonsterile tourniquet applied and then it was sterilely prepped and draped in the usual sterile fashion. OR time-out was performed. The patient received 2 g IV Ancef. Leg murillo was then applied to the right lower extremity. Right lower extremity was then exsanguinated. Tourniquet was insufflated to 250 mmHg. Standard anterior incision was made. Medial parapatellar arthrotomy was created. Deep fibers of the MCL were raised as well as anterior fat pad was resected. Attention was turned to the patella. Patella measured 24, resected to a 14 for a 32 x 10 mm patella. Drill holes were then drilled. Attention was then turned to the femur. Two 4.0 pins were placed intra-incisionally for the [place] Jose Alberto robotic array and then 2 more were placed on the tibia 3 fingerbreadths below the tibial tubercle. The [place] Jose Alberto robotic arrays were placed on both the femur and the tibia, then at this time as well as checkpoints on the femur and the tibia. Hip center rotation was then obtained. The medial lateral malleoli were marked. At this time, 40 points were obtained off the femur and the tibia for the [place] Jose Alberto robotic plan. The patient's knee was brought to full extension. Varus and valgus stresses were applied and then into 90 degrees of flexion with a curved osteotome. Varus and valgus stresses were applied. At this time, [employer] robotic plan was done to 19 mm gaps in both flexion and extension. Yoandy Mako robotic arm was then brought in. A straight saw blade was then used for the tibial cut, the anterior femoral cut, the anterior chamfer cut, and the posterior femoral cut. All bony fragments were removed. Saw blade was then switched out and the distal femoral cut as well as the posterior chamfer cut was completed. At this time, medial and lateral menisci were resected as well as any posterior osteophytes. A size 4 trial tibia was then placed, size 5 trial femur was placed, and a 9 mm polyethylene trial liner was placed. The patient's knee was brought to full extension and flexion. Varus and valgus stresses were applied, was found to be stable with no instability. No signs of liftoff or loosening were noted. At this time, box cut was completed on the femur. The pins were removed from the femur and the tibia as well as the arrays and the checkpoints. Cement was mixed on the back table. All cut surfaces were irrigated with pulse lavage irrigation with Ancef and then completely dried. Once the cement was ready, the size 4 tibia having been previously stamped and drilled, was then cemented in place on the tibia. The size 5 femur was [address] place. The patient had a 9 mm PS X3 polyethylene placed. The patient's knee was brought to full extension. Excess cement was removed. 32 x 10 mm patella was then cemented into place. 1 L of pulse lavage irrigation with Ancef was irrigated through the knee along with 400 mL of Irrisept irrigation. Periarticular injection was completed. Topical tranexamic acid and vancomycin powder were applied. A #2 barbed suture was used for closure of the medial parapatellar arthrotomy in flexion. 2-0 Vicryl and Stratafix was used for subcutaneous closure. Prineo was used for cutaneous closure. The patient had a sterile soft dressing applied. The tibial holes were closed with nylon and this was also covered with a sterile soft dressing. The patient had an Lonnie wrap applied and was sent to PACU in stable condition. The patient tolerated the procedure well. MMODAL /[id number]
== END 2020-12-11 15:34 | disposition home or self-care (01) ==
LOC: JD.SDS 08:00
PROVIDERS: ATTEND Orthopaedic Surgery
DX: M17.11 Unilateral primary osteoarthritis, right knee (principal); G89.29 Other chronic pain; I10 Essential (primary) hypertension; E78.00 Pure hypercholesterolemia, unspecified; E03.4 Atrophy of thyroid (acquired); I47.1 Supraventricular tachycardia; B35.3 Tinea pedis; Z79.899 Other long term (current) drug therapy; Z79.890 Hormone replacement therapy; Z86.010 Personal history of colon polyps; Z91.041 Radiographic dye allergy status; Z98.890 Other specified postprocedural states; G89.18 Other acute postprocedural pain
CPT/HCPCS: 27447; 73560; 87641; 97116; 97161; 97165; A9270; C1713; C1776; J0171; J0690; J0697; J1170; J1885; J2250; J2270; J2704; J2795; J3010; J3370; J7120; 01402; 64450; 76942

== ENCOUNTER 2021-01-16 09:36 | Day surgery (SDC) | payer MEDICARE, OTHER ==
[2021-01-16] MEDS: Polymyxin B/Trimethoprim 10 ML Bottle EYELF SCH ×4 (10:10→11:45)
[2021-01-16] MEDS: Brimonidine 0.2% Ophth Soln 5 ML Bottle EYELF SCH ×5 (10:15→11:45)
[2021-01-16] MEDS: Phenylephrine 2.5% Ophth Soln 2 ML Bot EYELF SCH ×6 (10:20→11:22)
[2021-01-16] MEDS: Tropicamide 1% Ophth Soln 15 ML Bottle EYELF SCH ×4 (10:25→11:03)
[2021-01-16] MEDS: Lidocaine 1% PF 2 ML SDV INJECT SCH ×2 (10:40→11:36)
[2021-01-16] MEDS: Tetracaine HCl/PF 0.5% 4 ML Bottle EYEBOTH SCH ×5 (10:40→11:35)
[2021-01-16] MEDS: Pilocarpine 4% Ophth Soln 15 ML Bot EYELF SCH ×2 (10:41→11:45)
[2021-01-16] MEDS: Cefuroxime 10 MG/ML SYRINGE EYELF SCH ×2 (10:41→11:44)
--- NOTE | 2021-01-16 10:45 | PCM.PREANE ---
Preanesthetic Assessment - Procedure Proposed Procedure: Left Eye Cataract Extraction with IOL - Anesthesia/Transfusion/Family Hx Anesthesia History: Prior Anesthesia Without Reaction Family History of Anesthesia Reaction: No Transfusion History: No Prior Transfusion(s) - Review of Systems General: No Symptoms Pulmonary: No Symptoms Cardiovascular: No Symptoms (Ablation 10 years ago, no probleme since. HTN. ) Gastrointestinal: No Symptoms Neurological: No Symptoms Other: Reports: None (Obesity, BMI 38), Thyroid Problems (Hypothyroidism) - Physical Assessment NPO Status Date: 01/15/21 NPO Status Time: 22:00 Height: 1.68 m Weight: 108.862 kg ASA Class: 2 Mental Status: Alert & Oriented x3 Airway Class: Mallampati = 2 Dentition: Reports: Normal Dentition Thyro-Mental Finger Breadths: 3 Mouth Opening Finger Breadths: 3 ROM/Head Extension: Full Lungs: Clear to Auscultation, Normal Respiratory Effort Cardiovascular: Regular Rate, Regular Rhythm - Allergies Allergies/Adverse Reactions: Allergies Allergy/AdvReac Type Severity Reaction Status Date / Time Iodinated Contrast Media Allergy Cannot Verified 01/15/21 14:32 Remember - Acknowledgements Anesthesia Type Planned: MAC Pt an Appropriate Candidate for the Planned Anesthesia: Yes Alternatives and Risks of Anesthesia Discussed w Pt/Guardian: Yes Pt/Guardian Understands and Agrees with Anesthesia Plan: Yes PreAnesthesia Questionnaire HEENT History: Reports: Impaired Vision, Other (See Below) Other HEENT History: wears glasses Cardiovascular History: Reports: High Cholesterol, Hypertension, Other (See Below) Other Cardiovascular History: SVT with ablation approx 2009 Respiratory History: Reports: None Gastrointestinal History: Reports: Colon Polyp, GERD Genitourinary History: Reports: Renal Calculus 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: Reports: 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 Musculoskeletal History: Reports: Osteoarthritis Neurological History: Reports: None Psychiatric History: Reports: None Endocrine/Metabolic History: Reports: Hypothyroidism, Osteopenia Hematologic History: Reports: None Immunologic History: Reports: None Oncologic (Cancer) History: Reports: None Dermatologic History: Reports: None - Infectious Disease History Infectious Disease History: Reports: None - Past Surgical History Head Surgeries/Procedures: Reports: None Cardiovascular Surgical History: Reports: Cardiac Ablation Respiratory Surgical History: Reports: None GI Surgical History: Reports: Colonoscopy Female Surgical History: Reports: Breast Biopsy Endocrine Surgical History: Reports: Thyroidectomy Neurological Surgical History: Reports: Other (See Below) Other Neurological Surgeries/Procedures: lumbar disc displacement Musculoskeletal Surgical History: Reports: Knee Replacement, Other (See Below) Other Musculoskeletal Surgeries/Procedures:: left wrist surgery, left total knee replacement Oncologic Surgical History: Reports: None Dermatological Surgical History: Reports: None - HOME MEDS Home Medications: Home Meds Calcium Carb/Vitamin D3/Vit K1 [Calcium + D Soft Chewable Tab] 1 tab PO DAILY 06/23/20 [History] Cholecalciferol (Vitamin D3) [Vitamin D3] 5,000 unit PO DAILY 06/23/20 [History] Levothyroxine 112 mcg PO Q48H 06/23/20 [History] Levothyroxine 125 mcg PO Q48H 06/23/20 [History] Magnesium Oxide 400 mg PO DAILY 06/23/20 [History] allopurinoL [Zyloprim] 300 mg PO DAILY 06/23/20 [History] hydroCHLOROthiazide [Hydrochlorothiazide] 25 mg PO DAILY 06/23/20 [History] lisinopriL [Lisinopril] 10 mg PO DAILY 06/23/20 [History] Vitamin E 400 unit PO DAILY 12/08/20 [History] Aspirin [Aspirin EC] 325 mg PO BID #84 tab 12/09/20 [Rx] Cyclobenzaprine [Flexeril] 10 mg PO BID PRN #20 tab 12/09/20 [Rx] oxyCODONE 5 - 15 mg PO Q4H PRN #40 tab 12/09/20 [Rx] - CURRENT (IN HOUSE) MEDS Current Meds: Current Medications Brimonidine Tartrate (Brimonidine 0.2% Ophth Soln 5 Ml Bottle) 0 ml EYELF ASDIRECTED TEMITOPE Stop: 01/16/21 18:00 Last Admin: 01/16/21 10:15 Dose: 1 drop Documented by: Cefuroxime Sodium (Cefuroxime 10 Mg/Ml Syringe) 0 mg EYELF ASDIRECTED TEMITOPE Stop: 01/16/21 18:00 Lidocaine HCl (Lidocaine 1% Pf 2 Ml Sdv) 0 ml INJECT ASDIRECTED TEMITOPE Stop: 01/16/21 18:00 Phenylephrine HCl (Phenylephrine 2.5% Ophth Soln 2 Ml Bot) 0 ml EYELF ASDIRECTED TEMITOPE Stop: 01/16/21 18:00 Last Admin: 01/16/21 10:40 Dose: 1 drop Documented by: Piloc[place]ine HCl (Pilocarpine 4% Ophth Soln 15 Ml Bot) 0 ml EYELF ASDIRECTED TEMITOPE Stop: 01/16/21 18:00 Polymyxin/Trimethoprim Sulfate (Polymyxin B/Trimethoprim 10 Ml Bottle) 0 ml EYELF ASDIRECTED TEMITOPE Stop: 01/16/21 18:00 Last Admin: 01/16/21 10:10 Dose: 1 drop Documented by: Tetracaine HCl (Tetracaine Hcl/Pf 0.5% 4 Ml Bottle) 0 ml EYEBOTH ASDIRECTED TEMITOPE Stop: 01/16/21 18:00 Tropicamide (Tropicamide 1% Ophth Soln 15 Ml Bottle) 0 ml EYELF ASDIRECTED TEMITOPE Stop: 01/16/21 18:00 Last Admin: 01/16/21 10:35 Dose: 1 drop Documented by:
--- NOTE | 2021-01-16 11:35 | PCM48HPAN ---
Post Anesthesia Note - EVALUATION WITHIN 48HRS OF ANESTHETIC Vital Signs in Normal Range: Yes Patient Participated in Evaluation: Yes Respiratory Function Stable: Yes Airway Patent: Yes Cardiovascular Function Stable: Yes Hydration Status Stable: Yes Pain Control Satisfactory: Yes Nausea and Vomiting Control Satisfactory: Yes Mental Status Recovered: Yes
== END 2021-01-16 11:55 | disposition home or self-care (01) ==
LOC: JD.SDS 09:36
PROVIDERS: ATTEND Ophthalmology
DX: H25.812 Combined forms of age-related cataract, left eye (principal); I10 Essential (primary) hypertension; C73 Malignant neoplasm of thyroid gland; H52.31 Anisometropia; H50.05 Alternating esotropia; E78.00 Pure hypercholesterolemia, unspecified; E03.9 Hypothyroidism, unspecified; Z98.890 Other specified postprocedural states; Z91.041 Radiographic dye allergy status; Z79.890 Hormone replacement therapy
CPT/HCPCS: 66984; C1780; J0697